=== PATIENT | female | born 1980 | race Caucasian/White ===

== ENCOUNTER 2024-09-03 11:53 | Emergency (ER) | payer MEDICAID ==
[~2024-09-03] VITALS: Ht 167.6 cm; Wt 100.5 kg
[2024-09-03] MEDS: diphenhydrAMINE 25 MG/10 ML UD oral solution PO ONE (13:06)
[2024-09-03] MEDS: dexamethasone 4mg tablet PO ONE (13:06)
[2024-09-03 13:15] VITALS: BP 129/87; PULSE 68; RESP 17; TEMP 97.9; O2SAT 99
== END 2024-09-03 13:17 | disposition home or self-care (01) ==
LOC: ER 11:53
DX: J02.8 Acute pharyngitis due to other specified organisms (principal); B97.89 Other viral agents as the cause of diseases classified elsewhere; K21.9 Gastro-esophageal reflux disease without esophagitis; F17.210 Nicotine dependence, cigarettes, uncomplicated; Z88.2 Allergy status to sulfonamides; Z88.5 Allergy status to narcotic agent; Z91.010 Allergy to peanuts
CPT/HCPCS: 99283; Q0163

== ENCOUNTER 2024-09-06 08:47 | Emergency (ER) | payer MEDICAID ==
[~2024-09-06] VITALS: Ht 167.6 cm; Wt 84.1 kg
[2024-09-06 08:56] VITALS: BP 135/77; PULSE 67; RESP 16; TEMP 97.2; O2SAT 99
== END 2024-09-06 09:20 | disposition home or self-care (01) ==
LOC: ER 08:47
DX: R68.2 Dry mouth, unspecified (principal); T38.0X5A Adverse effect of glucocorticoids and synthetic analogues, initial encounter; E03.9 Hypothyroidism, unspecified; E07.9 Disorder of thyroid, unspecified; K21.9 Gastro-esophageal reflux disease without esophagitis; Z88.2 Allergy status to sulfonamides; Z88.5 Allergy status to narcotic agent; Z91.011 Allergy to milk products; Y92.89 Other specified places as the place of occurrence of the external cause
CPT/HCPCS: 99281

== ENCOUNTER 2024-10-05 11:58 | Emergency (ER) | payer MEDICAID ==
[~2024-10-05] VITALS: Ht 167.6 cm; Wt 91.2 kg
[2024-10-05 12:22] VITALS: BP 146/92; PULSE 67; RESP 18; TEMP 97.8; O2SAT 98
== END 2024-10-05 15:40 | disposition left against medical advice (07) ==
LOC: ER 11:59
DX: R07.89 Other chest pain (principal); Z88.2 Allergy status to sulfonamides; Z91.010 Allergy to peanuts; Z91.011 Allergy to milk products; Z88.5 Allergy status to narcotic agent; Z88.8 Allergy status to other drugs, medicaments and biological substances; Z53.21 Procedure and treatment not carried out due to patient leaving prior to being seen by health care provider